=== PATIENT | female | born 1960 | race Caucasian/White ===

== ENCOUNTER 2016-06-10 09:25 | Day surgery (SDC) | payer BC ==
[~2016-06-10 09:25] MED LIST: DEXAMETHASONE SOD PHOSPHATE 10 MG/ML 1 ML VIAL IV ONE; HEPARIN SODIUM,PORCINE 5,000 UNIT/ML 1 ML VIAL SQ ONE; HYDROmorphone 1 MG/ML 1 ML SYRINGE IVP PRN; LACTATED RINGERS 1,000 ML IV SCH; MIDAZOLAM 2 MG/2 ML VIAL IV PRN; ONDANSETRON 4 MG/2 ML VIAL IVP ONE; SCOPOLAMINE 1.5MG/72HR PATCH TRANSDERM ONE; ceFAZolin 2 GM in SODIUM CHLORIDE 0.9% 100 ML IVPB ONE
[2016-06-10] MEDS ORDERED: LIDOCAINE 1% 20 ML VIAL (10MG/ML) FOR IV START INTRADERMA ONE (10:10)
[2016-06-10 10:17] LABS: Glucose,Whole Blood 107 mg/dL (75-99)
--- NOTE | 2016-06-10 10:27 | P.GSHP ---
History of Present Illness H&P Date: 06/10/16 Chief Complaint: Right upper quadrant pain, cholelithiasis This is a 56-year-old female referred from Dr. granado. Patient complains of right upper quadrant pain. She is found have evidence of cholelithiasis. She presents today for laparoscopic cholecystectomy. - Constitutional Constitutional: Reports as per HPI Past Medical History Past Medical History: Diabetes Mellitus, Hyperlipidemia, Hypertension, Osteoarthritis (OA) History of Any Multi-Drug Resistant Organisms: None Reported Past Surgical History: Adenoidectomy, Appendectomy, Hysterectomy, Orthopedic Surgery, Tonsillectomy Additional Past Surgical History / Comment(s): hemmoriodectomy, foot, knee, shoulder carpal tunnel Past Anesthesia/Blood Transfusion Reactions: No Reported Reaction Past Psychological History: No Psychological Hx Reported Smoking Status: Current every day smoker Past Alcohol Use History: Rare Additional Past Alcohol Use History / Comment(s): has smoked since 1984 Past Drug Use History: None Reported - Past Family History Brother(s) Family Medical History: Cancer Medications and Allergies Home Medications Medication Instructions Recorded Confirmed Type Acetaminophen [Tylenol] 325 mg PO Q4H PRN 05/25/16 06/10/16 History Albuterol Sulfate [Proair Hfa] 1 - 2 puff INHALATION Q6HR PRN 05/25/16 06/10/16 History Diclofenac Sodium [Diclofenac 100 mg PO DAILY 05/25/16 06/10/16 History Sodium ER] Fluticasone/Salmeterol [Advair 1 inhalation PO BID 05/25/16 06/10/16 History 250-50 Diskus] HYDROcodone/APAP 7.5-325MG [[place] 1 tab PO Q4H PRN 05/25/16 06/10/16 History 7.5-325] Ibuprofen [Motrin] 600 mg PO Q8HR PRN 05/25/16 06/10/16 History RABEprazole SODIUM [Aciphex] 20 mg PO DIRECTED PRN 05/25/16 06/10/16 History Simvastatin [Zocor] 40 mg PO HS 05/25/16 06/10/16 History Verapamil HCl [Verapamil ER] 120 mg PO HS 05/25/16 06/10/16 History metFORMIN HCL [Glucophage] 500 mg PO BID 05/25/16 06/10/16 History traMADol HCL [traMADol HCL ER] 150 mg PO DIRECTED PRN 05/25/16 06/10/16 History Allergies Allergy/AdvReac Type Severity Reaction Status Date / Time Sulfa (Sulfonamide Allergy Swelling Verified 06/10/16 09:59 Antibiotics) Surgical - Exam Vital Signs Temp Pulse Resp BP Pulse Ox 98.6 F 92 20 144/65 97 06/10/16 09:56 06/10/16 09:56 06/10/16 09:56 06/10/16 09:56 06/10/16 09:56 - General well developed, no distress - Eyes PERRL - ENT normal pinna - Neck no masses - Respiratory normal expansion - Cardiovascular Rhythm: regular - Abdomen Abdomen: soft, non tender Results - Labs Abnormal Lab Results - Last 24 Hours (Table) 06/10/16 Range/Units 10:14 POC Glucose (mg/dL) 107 H (75-99) mg/dL Assessment and Plan Plan: Cholelithiasis. We'll perform laparoscopic cholecystectomy
[2016-06-10] MEDS ORDERED: fentaNYL (PF) 50 MCG/ML 2 ML AMP ONE (10:47)
[2016-06-10] MEDS ORDERED: LIDOCAINE 1% INJ 10MG/ML (20 ML MDV) ONE (10:47)
[2016-06-10] MEDS ORDERED: VECURONIUM 10 MG VIAL IV ONE (10:47)
[2016-06-10] MEDS ORDERED: MIDAZOLAM 2 MG/2 ML VIAL ONE (10:47)
[2016-06-10] MEDS ORDERED: LACTATED RINGERS 1,000 ML BAG IV ONE (10:47)
[2016-06-10] MEDS ORDERED: SODIUM CHLORIDE 0.9% 100 ML BAG ONE (10:47)
[2016-06-10] MEDS ORDERED: SUCCINYLCHOLINE CHLORIDE 100 MG/5 ML SYR IV ONE (10:47)
[2016-06-10] MEDS ORDERED: KETOROLAC 30 MG/ML 1 ML VIAL ONE (10:47)
[2016-06-10] MEDS ORDERED: PROPOFOL 10 MG/ML 20 ML VIAL IV ONE (10:47)
[2016-06-10] MEDS ORDERED: HYDROmorphone (PF) 1 MG/ML ONE (10:47)
[2016-06-10] MEDS ORDERED: ceFAZolin 1,000 MG VIAL ONE (10:47)
[2016-06-10] MEDS ORDERED: BUPIVACAIN-EPI 0.25%-1:200,000 30 ML VIAL SQ ONE (11:02)
[2016-06-10] MEDS ORDERED: LACTATED RINGERS 1,000 ML IV ONE (11:21)
[2016-06-10 11:46] LABS: Glucose,Whole Blood 147 mg/dL (75-99)
[2016-06-10] MEDS ORDERED: HYDROcodone/APAP 7.5-325MG 1 EACH TAB PO ONE (13:12)
--- NOTE | 2016-06-23 15:23 | P.OP ---
Date of Procedure: 06/10/06 Preoperative Diagnosis: Cholelithiasis Cholecystitis Postoperative Diagnosis: Cholelithiasis Cholecystitis Procedure(s) Performed: Laparoscopic cholecystectomy Anesthesia: BERNADETTE Surgeon: Jose Guerra Estimated Blood Loss (ml): 5 Pathology: other Condition: stable Disposition: PACU Description of Procedure: The patient was placed on the operating table. The patient received a general endotracheal tube anesthesia. The patients abdomen was prepped and draped in the usual sterile fashion. Through an infraumbilical stab incision, the fascia of the anterior abdominal wall was grasped with a pair of Kochers and then the Veress needle was placed in the peritoneal cavity. Position of the Veress needle was confirmed with positive drop test. The abdomen was then insufflated. After adequate insufflation, the 10 mm trocar was placed in the peritoneal cavity. Following this the laparoscope was placed in the peritoneal cavity. The patient was placed in the head-up, right side up position and then a 5 mm trocar was placed in the right lateral and right subcostal position under direct visualization. A 8 mm trocar was placed in the epigastric position. The gallbladder was grasped in the fundus and infundibulum. Traction on the gallbladder was placed in the lateral and the cephalad positions. The triangle of Calot was visualized.. The cystic duct was bluntly dissected until the union of the cystic duct and common bile duct was seen. The cystic duct was then divided and sealed with the Harmonic scissors. A PDS Endoloop was then placed throughout the cystic duct stump. The cystic artery divided and sealed with the Harmonic scissors. The gallbladder was then removed from the liver bed using Harmonic scissors. The gallbladder was then extracted through the epigastric port site. Operative field was checked for any bleeding spots and Harmonic scissors was used to coagulate the liver bed. The abdomen was irrigated. The trocars were removed. The skin was closed using interrupted 3-0 Vicryl suture. Dermabond dressing were applied. The patient tolerated the procedure well.
== END 2016-06-10 13:58 | disposition home or self-care (01) ==
LOC: OR 09:25
PROVIDERS: ATTEND Surgery
DX: K80.10 Calculus of gallbladder with chronic cholecystitis without obstruction (principal); E11.9 Type 2 diabetes mellitus without complications; E78.5 Hyperlipidemia, unspecified; I10 Essential (primary) hypertension; M19.90 Unspecified osteoarthritis, unspecified site; F17.200 Nicotine dependence, unspecified, uncomplicated; Z79.899 Other long term (current) drug therapy; Z79.1 Long term (current) use of non-steroidal anti-inflammatories (NSAID); Z79.51 Long term (current) use of inhaled steroids; Z79.84 Long term (current) use of oral hypoglycemic drugs; Z88.2 Allergy status to sulfonamides
CPT/HCPCS: 88304; 47562; J2250; J1644; J1100; J2405; J0690; J2001; J3010; J1885; J1170; J0330; J2704